=== PATIENT | female | born 1995 | race Two or more races ===

== ENCOUNTER 2018-10-31 11:15 | Emergency (ER) | payer OTHER ==
[~2018-10-31] VITALS: Ht 172.7 cm; Wt 58.1 kg
--- NOTE | 2018-10-31 11:24 | NUR ---
"RIGHT RIB PAIN x 1 WEEK, PT STATES "IT HURTS WHEN I BREATH" 10/ PS" PT [id number], -SOB, NAD NOTED, VSS ,PENDING MD BEDOLLA
[2018-10-31] MEDS ORDERED: ACETAMINOPHEN ES 500 MG TABLET ONE (11:42)
--- NOTE | 2018-10-31 11:45 | NUR ---
URINE SENT TO LAB
[2018-10-31 11:50] LABS: BASOPHILS % (AUTO) 0.3 % (0.0-2.0); EOSINOPHILS % (AUTO) 0.6 % (0.0-6.0); HEMATOCRIT 40 % (33-45); HEMOGLOBIN 13.3 g/dL (11.5-14.8); LYMPHOCYTES # (AUTO) 1.2 /CMM (0.8-4.8); LYMPHOCYTES % (AUTO) 18.2 % (20.0-44.0); MEAN CORPUSCULAR HGB CONC 33 g/dl (31.0-36.0); MEAN CORPUSCULAR VOLUME 90 fL (82-100); MONOCYTES # (AUTO) 0.6 /CMM (0.1-1.30); MONOCYTES % (AUTO) 8.5 % (2.0-12.0); NEUTROPHILS % (AUTO) 72.4 % (43.0-81.0); PLATELET COUNT (AUTO) 188 /CMM (150-450); RED BLOOD CELL COUNT(AUTO) 4.42 MIL/uL (4.0-5.2); WHITE BLOOD COUNT (AUTO) 6.9 K/uL (4.3-11.0)
[2018-10-31 11:58] LABS: CALCIUM, SERUM 9.4 mg/dL (8.5-10.1); CREATININE 0.7 mg/dL (0.6-1.3)
[2018-10-31] MEDS ORDERED: ACETAMINOPHEN ES 500 MG TABLET PO ONE (12:00)
[2018-10-31 12:03] LABS: ALBUMIN 4.1 g/dL (3.4-5.0); BILIRUBIN,DIRECT 0.1 mg/dL (0.0-0.2); BILIRUBIN,TOTAL 0.5 mg/dL (0.2-1.0); TOTAL PROTEIN, SERUM 7.7 g/dL (6.4-8.2)
[2018-10-31 12:40] VITALS: BP 110/65
--- NOTE | 2018-10-31 12:40 | NUR ---
Patient discharged to home in stable condition. Written and verbal after care instructions given. Patient verbalizes understanding of instruction.
== END 2018-10-31 12:42 | disposition home or self-care (01) ==
LOC: ER 11:19
DX: R07.81 Pleurodynia (principal); R10.11 Right upper quadrant pain; R06.02 Shortness of breath
CPT/HCPCS: 36415; 71045-TC; 80048-TC; 80076-TC; 84703-TC; 85025-TC